=== PATIENT | female | born 2000 ===

== ENCOUNTER 2024-01-01 06:24 | Outpatient (REF) | payer OTHER, SELFPAY ==
--- NOTE | ~2024-01-01 | US_ITS ---
EXAMINATION: US PELVIS CLINICAL INFORMATION: Pelvic pain, IUD check. Irregular menstrual periods. COMPARISON: None available. TECHNIQUE: Ultrasound of the pelvis is performed using both transabdominal and transvaginal transducers along with Doppler. Transvaginal imaging is performed due to inadequate visualization transabdominally. FINDINGS: Anteverted uterus with normal morphology measuring 5.4 x 2.9 x 4.1 cm. There is a 1.5 x 0.7 x 1 cm focal uterine lesion along the anterior-inferior body with a combined intramural and subserosal situation, suggestive of a fibroid. IUD centered in the endometrial canal. No significant endometrial abnormality. The left ovary was only visualized on transabdominal images. Both ovaries are normal in morphology with symmetric size. The right ovary measures 2.7 x 1.8 x 1.9 cm (4.8 mL) and the left ovary measures 2.3 x 1.6 x 1.7 cm (3.4 mL). No adnexal mass. No free fluid. US/US pelvic and transvaginal IMPRESSION: 1. Satisfactory positioning of the IUD. 2. A 1.5 cm uterine lesion is most suggestive of a fibroid. Electronically signed by: Mayra Sesay MD 01/01/2024 03:25 PM EDT
== END 2024-01-01 06:25 | disposition home or self-care (01) ==
LOC: HO.UMASIMG 06:24
PROVIDERS: Visit Provider Nurse Practitioner Family
DX: R10.30 Lower abdominal pain, unspecified (principal)
CPT/HCPCS: 76830; 76856